=== PATIENT | female | born 1945 | race Caucasian/White ===

== ENCOUNTER 2016-08-14 20:04 | Inpatient (IN) ==
[2016-08-14] MEDS ORDERED: Ondansetron 4 MG/2 ML VIAL IVP ONE (20:59)
[2016-08-14] MEDS ORDERED: 0.9 % Sodium Chloride 500 ML IVC ONE (20:59)
[2016-08-14] MEDS ORDERED: *HR* HYDROmorphone (PF) 1 MG/ML SYRINGE IVP ONE (20:59)
--- NOTE | 2016-08-14 21:00 | Emergency Department Note ---
Disposition Clinical Impression: CRISTOBAL (acute kidney injury), Dehydration Abdominal pain Qualifiers: Abdominal location: right lower quadrant Qualified Code(s): R10.31 - Right lower quadrant pain Disposition: Admitted As Inpatient Condition: Fair Time of Disposition: 00:33 Abdominal Pain HPI - General Chief Complaint: ED Abdominal Pain Stated Complaint: right flank pain Time Seen by Provider: 08/14/16 20:15 Source: patient Mode of arrival: ambulatory Limitations: no limitations Nursing Notes Reviewed: Yes Vital Signs Reviewed: Yes - History of Present Illness HPI Narrative: 71-year-old female with right lower quadrant pain radiating to her right flank. Patient states that she was seen 3 days ago for the evaluation the same pain. They thought that maybe she passed a kidney stone. Patient has a history of cholecystectomy. States it out of 10 cramping right lower quadrant pain radiated into her right flank. Also so she has some dysuria. Reports subjective fevers and chills, patient denies any history of colonoscopy or endoscopy. Patient states she had no hematuria hematemesis or melena or shortness of breath Pt Subjective Complaint: abdominal pain Onset (ago): hour(s) Consistency: intermittent Location: RLQ Pain Severity: mild Pain Scale: 10 Quality: aching Radiation: LLQ, R flank Migration to: RLQ Improves with: nothing Worsens with: bowel movement, movement Associated symptoms: Reports: nausea. Denies: vomiting, diarrhea, constipation , dysuria, hematemesis, hematochezia, melena - Related Data Home Medications Medication Instructions Recorded Confirmed Aspirin [Lo-Dose Aspirin EC] 81 mg PO DAILY 04/12/16 06/01/16 Atorvastatin [Lipitor] 40 mg PO HS 04/12/16 06/01/16 Chlorthalidone 50 mg PO DAILY 04/12/16 06/01/16 Lisinopril [Zestril] 40 mg PO DAILY 04/12/16 06/01/16 Metformin HCl [Metformin HCl ER] 3 tab PO DAILY 04/12/16 06/01/16 Metoprolol [Lopressor] 100 mg PO BID 04/12/16 06/01/16 Potassium Chloride [K-Tab ER] 20 meq PO DAILY 04/12/16 06/01/16 Previous Rx's Medication Instructions Recorded HYDROcodone/Acet 5/325 mg [[place] 1 tab PO Q4H PRN #15 tab 08/12/16 5-325 mg] Ondansetron ODT [Zofran ODT] 4 mg SL Q6HR PRN #15 tab.rapdis 08/12/16 Sulfamethoxazole/Trimeth DS 1 each PO BID #14 tablet 08/12/16 [Bactrim DS] Allergies Allergy/AdvReac Type Severity Reaction Status Date / Time No Known Allergies Allergy Verified 08/14/16 20:17 All systems ED: reviewed and negative except as stated. Constitutional: Denies: fever, chills Cardiovascular: Denies: chest pain, palpitations Respiratory: Denies: cough, dyspnea Gastrointestinal: Reports: abdominal pain, nausea. Denies: vomiting, diarrhea Genitourinary: Denies: urgency, dysuria Musculoskeletal: Denies: back pain, neck pain Integumentary: Denies: rash, abrasion Abdominal Pain PMH - Past Medical History Medical history: Reports: cancer, diabetes, hypertension Female Surgical History: Reports: cholecystectomy, coronary bypass (CABG) Psychiatric history: Reports: no psych history - Social History Smoking status: Never smoker Alcohol use: Reports: none Drug use: Reports: none Physical Exam Constitutional: elderly female appears moderately uncomfortable, vital signs within normal limits HEENT: NCAT, sclera anicteric, PERRLA bilaterally, average dentition, mucous membranes dry Neck: normal inspection, neck is supple, trachea midline Resp: normal chest inspection, CTA bilaterally, no resp distress CV: RRR, no m/g/r GI: Right lower quadrant tenderness to palpation, tenderness with rebound moderate, no guarding or rigidity, positive right CVA tenderness Back: normal inspection, no tenderness to palpation Skin: poor turgor - General General appearance: alert, in no apparent distress Course Course Narrative: 71-year-old female recently CT scan was negative, for abdominal pathology however she continues to have right lower quadrant pain - Reevaluation(s) Reevaluation #1: Admitted to [facility] still with concerning RLQ pain and no evidence of surgical pathology, admitted for pain and further workup given bouncebacks and age and comorbids may need gi eval. Time: 00:45 Vital Signs Temperature 98.2 F 08/14/16 20:15 Pulse Rate 67 08/14/16 20:15 Respiratory Rate 14 08/14/16 20:15 Blood Pressure 180/82 08/14/16 20:15 O2 Sat by Pulse Oximetry 96 08/14/16 20:15 Temperature 98.2 F 08/14/16 20:15 Pulse Rate 67 08/14/16 20:15 Respiratory Rate 14 08/14/16 20:15 Blood Pressure 180/82 08/14/16 20:15 O2 Sat by Pulse Oximetry 96 08/14/16 20:15 Oxygen Delivery Oxygen Delivery Room Air Abdominal Pain - MDM Narrative Medical decision making narrative: 71-year-old female admitted for nonspecific abdominal pain, elevated bilirubin, dehydration and acute kidney injury in stable condition at time of ED disposition - Differential Diagnosis Differential Diagnosis: Likely: abdominal pain non-specific, abdominal pain mimics ectopic , acute appendicitis, diverticulitis, endometriosis, gastroenteritis, ischemic bowel - Medical Records Medical records reviewed: Yes I reviewed the patient's medical records. - Lab Data Lab results reviewed: Yes I reviewed the patient's lab results. Result diagrams: 08/14/16 21:59 08/14/16 21:59 Lab Results 08/14/16 08/14/16 08/14/16 Range/Units 21:59 21:59 21:59 WBC 9.3 (4.3-11.1) K/mcL RBC 4.18 (3.82-4.97) M/mcL Hgb 12.5 (11.5-15.4) g/dL Hct 37.0 (35.3-44.9) % MCV 88.5 (83.0-100.0) fL MCH 29.9 (28.0-33.3) pg MCHC 33.8 (31.6-35.5) g/dL RDW 12.4 (11.5-14.5) % Plt Count 241 (140-400) K/mcL MPV 9.8 (9.4-12.4) fL Immature Gran % 0.4 (0-4) % Seg Neutrophils % 76.5 % Lymphocytes % 9.3 % Monocytes % 10.8 % Eosinophils % 2.8 % Basophils % 0.2 % Neutrophils # 7.1 (1.6-8.9) K/mcL Lymphocytes # 0.9 (0.6-4.6) K/mcL Monocytes # 1.0 (0.0-1.3) K/mcL Eosinophils # 0.3 (0.0-0.6) K/mcL Basophils # 0.0 (0.0-0.2) K/mcL Sodium 139 (136-145) mEq/L Potassium 4.0 (3.5-4.5) mEq/L Chloride 104 (98-109) mEq/L Carbon Dioxide 23 (19-29) mEq/L BUN 21 H (7-20) mg/dL Creatinine 1.48 H D (0.57-1.11) mg/dL Est GFR ( Amer) 42 L (> 60) Est GFR (Non-Af Amer) 35 L (> 60) BUN/Creatinine Ratio 14 (6-26) Glucose 146 H (70-99) mg/dL Calculated Osmolality 294 (280-300) Calcium 9.3 (8.6-10.8) mg/dL Total Bilirubin 2.1 H (0.2-1.2) mg/dL Direct Bilirubin 0.7 H (0.0-0.5) mg/dL Indirect Bilirubin 1.4 H (0.0-1.2) mg/dL AST 25 (5-34) Units/L ALT 30 (0-55) Units/L Alkaline Phosphatase 79 (38-126) Units/L Troponin I 0.01 (0-0.03) ng/mL Serum Total Protein 7.2 (6.0-8.3) g/dL Albumin 3.8 (3.5-5.0) g/dL Globulin 3.4 (2.4-3.5) g/dL Albumin/Globulin Ratio 1.1 (1.1-2.2) Lipase 17 (8-78) Units/L Urine Color (Yellow) Urine Clarity (Clear) Urine pH (5.0-8.0) pH Units Ur Specific [place] (1.010-1.025) Urine Protein (Neg-Trace) mg/dL Urine Glucose (UA) (Normal) mg/dL Urine Ketones (Negative) mg/dL Urine Blood (Negative) Urine Nitrite (Negative) Urine Bilirubin (Negative) Urine Urobilinogen (Normal) mg/dL Ur Leukocyte Esterase (Negative) Urine Microscopic WBC (0-3) per hpf Ur Squamous Epith Cells (None-Few) per lpf Urine Bacteria (None-Few) per hpf 08/14/16 Range/Units 23:50 WBC (4.3-11.1) K/mcL RBC (3.82-4.97) M/mcL Hgb (11.5-15.4) g/dL Hct (35.3-44.9) % MCV (83.0-100.0) fL MCH (28.0-33.3) pg MCHC (31.6-35.5) g/dL RDW (11.5-14.5) % Plt Count (140-400) K/mcL MPV (9.4-12.4) fL Immature Gran % (0-4) % Seg Neutrophils % % Lymphocytes % % Monocytes % % Eosinophils % % Basophils % % Neutrophils # (1.6-8.9) K/mcL Lymphocytes # (0.6-4.6) K/mcL Monocytes # (0.0-1.3) K/mcL Eosinophils # (0.0-0.6) K/mcL Basophils # (0.0-0.2) K/mcL Sodium (136-145) mEq/L Potassium (3.5-4.5) mEq/L Chloride (98-109) mEq/L Carbon Dioxide (19-29) mEq/L BUN (7-20) mg/dL Creatinine (0.57-1.11) mg/dL Est GFR ( Amer) (> 60) Est GFR (Non-Af Amer) (> 60) BUN/Creatinine Ratio (6-26) Glucose (70-99) mg/dL Calculated Osmolality (280-300) Calcium (8.6-10.8) mg/dL Total Bilirubin (0.2-1.2) mg/dL Direct Bilirubin (0.0-0.5) mg/dL Indirect Bilirubin (0.0-1.2) mg/dL AST (5-34) Units/L ALT (0-55) Units/L Alkaline Phosphatase (38-126) Units/L Troponin I (0-0.03) ng/mL Serum Total Protein (6.0-8.3) g/dL Albumin (3.5-5.0) g/dL Globulin (2.4-3.5) g/dL Albumin/Globulin Ratio (1.1-2.2) Lipase (8-78) Units/L Urine Color Yellow (Yellow) Urine Clarity Clear (Clear) Urine pH 6.0 (5.0-8.0) pH Units Ur Specific [place] 1.015 (1.010-1.025) Urine Protein Negative (Neg-Trace) mg/dL Urine Glucose (UA) Normal (Normal) mg/dL Urine Ketones Negative (Negative) mg/dL Urine Blood Negative (Negative) Urine Nitrite Negative (Negative) Urine Bilirubin Negative (Negative) Urine Urobilinogen 2.0 H (Normal) mg/dL Ur Leukocyte Esterase Trace H (Negative) Urine Microscopic WBC 0-3 (0-3) per hpf Ur Squamous Epith Cells Few (None-Few) per lpf Urine Bacteria Moderate H (None-Few) per hpf - Radiology Data Radiology results reviewed: Yes I reviewed the patient's radiology results. - EKG Data EKG attestation: Yes I reviewed and interpreted this EKG. EKG shows normal: sinus rhythm Rate: normal Rhythm: NSR (63bpm, 203 AK QRS 98 QTc 432) [place]/QRS: normal Interpretation: unchanged when compared to prior tracing (date) - Core Measures AMI Core Measures Followed: No
--- NOTE | 2016-08-14 21:13 | Emergency Department Note ---
START Narrative - START START: I examined this patient and my medical decision-making was reviewed with the HOTEL ROOM ATTENDANT/PA/Advanced Practice Nurse/Resident Physician. I agree with the documented findings, disposition and treatment plan as described except to the extent set forth below. ED attending note: Patient seen with emergency medicine resident Dr. Storm. Please see a copy of his note for details of the H&P, evaluation, management and disposition of this patient. We independently had [id number] contact with the patient Briefly: 71-year-old female evaluated within the past week at this ER for right flank pain had a negative CT scan patient has increasing pain on the right lower quadrant she is tender with guarding but no rebound. Symmetrical heaving she is vomiting. Patient getting labs IV fluids anti-emetics analgesics and IV contrast CT. Disposition pending.
[2016-08-14 22:09] LABS: Basophils % 0.2 %; Eosinophils # 0.3 K/mcL (0.0-0.6); Eosinophils % 2.8 %; Hemoglobin 12.5 g/dL (11.5-15.4); Immature Granulocytes % 0.4 % (0-4); Lymphocytes # 0.9 K/mcL (0.6-4.6); Lymphocytes % 9.3 %; Mean Corpuscular HGB Conc 33.8 g/dL (31.6-35.5); Mean Corpuscular Hemoglobin 29.9 pg (28.0-33.3); Mean Corpuscular Volume 88.5 fL (83.0-100.0); Mean Platelet Volume 9.8 fL (9.4-12.4); Monocytes % 10.8 %; Neutrophils # 7.1 K/mcL (1.6-8.9); Platelet Count 241 K/mcL (140-400); Red Blood Count 4.18 M/mcL (3.82-4.97); Red Cell Distribution Width 12.4 % (11.5-14.5); Segmented Neutrophils % 76.5 %
[2016-08-14 22:21] LABS: Albumin 3.8 g/dL (3.5-5.0); Albumin/Globulin Ratio 1.1 (1.1-2.2); Bilirubin,Direct 0.7 mg/dL (0.0-0.5); Bilirubin,Indirect 1.4 mg/dL (0.0-1.2); Bilirubin,Total 2.1 mg/dL (0.2-1.2); Calcium 9.3 mg/dL (8.6-10.8); Globulin 3.4 g/dL (2.4-3.5); Total Protein 7.2 g/dL (6.0-8.3)
[2016-08-14 23:58] LABS: Bilirubin,Urine Negative (Negative); Blood,Urine Negative (Negative); Clarity,Urine Clear (Clear); Color,Urine Yellow (Yellow); Glucose,Urine (UA) Normal (Normal); Ketones,Urine Negative (Negative); Leukocyte Esterase,Urine Trace (Negative); Nitrite,Urine Negative (Negative); Protein,Urine Negative (Neg-Trace); Specific Gravity,Urine 1.015 (1.010-1.025)
[2016-08-15 00:08] LABS: Bacteria,Urine Moderate per hpf (None-Few); Squamous Epithelial Cell,Urine Few per lpf (None-Few); WBC,Urine 0-3 per hpf (0-3)
--- NOTE | 2016-08-15 01:10 | Internal Med History&Physical ---
<Josiah Montes - Last Filed: 08/15/16 02:36> Date of Encounter: 08/15/16 Time of Encounter: 00:45 Assessment and Plan (1) UTI (urinary tract infection) Current visit: No Status: Acute Patient presents with nausea, vomiting, and abdominal pain. UA was suggestive of UTI, without blood or casts. Patient does not have tachycardia, tachypnea, is afebrile, and has no leukocytosis. There is no clear reason at the moment why she is having such severe abdominal pain. Will start patient on ceftriaxone Obtain urine culture and sensitivities to further direct antibiotic treatment Qualifiers: Urinary tract infection type: site unspecified Hematuria presence: without hematuria Qualified Code(s): N39.0 - Urinary tract infection, site not specified (2) Abdominal pain Current visit: Yes Status: Acute Patient complains of RLQ abdominal pain at presentation. CT of her abdomen was negative for acute processes. No renal or uretral stones were visualized, there were no secondary signs of appendicitis, she had prior cholecystectomy, and there were no signs of obstructive uropathy. There was no rash identified on physical exam, patient abdomen was soft without signs of guarding or rebound. UA was suggestive of UTI though. Pain control with Tylenol, [place], and Dilaudid prn for patient discomfort Qualifiers: Abdominal location: right lower quadrant Qualified Code(s): R10.31 - Right lower quadrant pain (3) CRISTOBAL (acute kidney injury) Current visit: Yes Status: Acute Her CRISTOBAL is likely multi-factorial coming from decreased PO intake and dehydration as well as using several potentially nephrotoxic agents: lisinpeil, metformin, chlorthalidone, and Bactrim. Will hold all potentially nephrotoxic agents Patient received 1000 ml bolus in the ER, and has been continued on 125 ml/hr normal saline Will recheck renal function in the morning (4) Hypertension Current visit: Yes Status: Acute Patient has been showing hypertension since admission. She takes several medications at home to help her control her hypertension. Will hold her home lisinopril due to concerns of CRISTOBAL currently Continue home metoprolol Qualifiers: Hypertension type: essential hypertension Qualified Code(s): I10 - Essential (primary) hypertension (5) Elevated bilirubin Current visit: Yes Status: Acute Patient has elevated Total bilirubin to 2.1 with an even elevation seen in both Direct and Indirect bilirubin. This is unchanged from her previous labwork several days ago, but improved from labwork seen from 2014. She has no reports of jaundice or icterus. Alk Phos was normal. Will recheck hepatic panel in the morning (6) DVT prophylaxis Current visit: Yes Status: Acute Patient started on 5000 u heparin SQ Encourage ambulation Internal Medicine - H&P: HPI Chief complaint: Abdominal Pain, Nausea, and vomiting Admitted From: Home Plans for Post Hospital Care: Home History of present illness: Ms. Sanders is a 71 year old female with prior medical history signifcant for non -insulin dependent diabetes mellitus, hypertension, and Hodgkin;s Lymphoma (for which she finished treatment in 04/2016. who presents to [facility] with continued abdominal pain in the RLQ of her abdomen. She came to the ER on 08/12/16 with similar complaints, underwent a CT of her abdomen (no acute findings in the abdomen), and was diagnosed with a UTI and sent home with pain medication and Bactrim. She returned to the ER last night after having continuation and worsening of the abdominal pain that she had on 08/12. She reports that the pain in her abdomen never improved and at times had worsened despite the antibiotics. She describes the pain as sharp, 10/10 in severity, non-radiating, with pain medication making better. She states that she has been having nausea and vomiting without hematemesis or coffee-ground emesis. She also reports having some anorexia in the past day because of the pain she has been having. She denies having had a fever/chills, chest pain, shortness of breath, dysuria, polyuria, hematuria, urinary incontinence, weakness, fatigue, diarrhea, or constipation. Past Med Surg Social Fam HX - Past Medical History Medical history: cancer, diabetes, hypertension Psychiatric history: no psych history - Social History Smoking Status: Never smoker Smokeless Tobacco Status: No Alcohol use: none Drug use: none - Family History Mother Hx Family Cardiac Disorders: Yes Hx Family Endocrine Disorder: Yes Father Hx Family Cardiac Disorders: Yes Internal Medicine - H&P: Meds Aspirin [Lo-Dose Aspirin EC] 81 mg PO DAILY 04/12/16 [History] Atorvastatin [Lipitor] 40 mg PO HS 04/12/16 [History] Chlorthalidone 50 mg PO DAILY 04/12/16 [History] Lisinopril [Zestril] 40 mg PO DAILY 04/12/16 [History] Metformin HCl [Metformin HCl ER] 3 tab PO DAILY 04/12/16 [History] Metoprolol [Lopressor] 100 mg PO BID 04/12/16 [History] Potassium Chloride [K-Tab ER] 20 meq PO DAILY 04/12/16 [History] Sulfamethoxazole/Trimeth DS [Bactrim DS] 1 each PO BID #14 tablet 08/12/16 [Rx] Allergies No Known Allergies Allergy (Verified 08/14/16 20:17) - Constitutional Constitutional: anorexia, no chills, no fatigue, no fever(s), no night sweats, no weakness, no weight loss - Cardiovascular Cardiovascular ROS IM: no chest pain, no diaphoresis, no dyspnea, no lightheadedness, no palpitations, no syncope - Respiratory Respiratory: no cough, no dyspnea, no wheezing, no excessive phlegm production - Gastrointestinal Gastrointestinal: abdominal pain, nausea, vomiting, no coffee ground emesis, no constipation, no diarrhea, no hematemesis, no hematochezia, no melena - Genitourinary Genitourinary: as per HPI, no difficulty urinating, no dysuria, no flank pain, no hematuria, no nocturia, no urinary incontinence - Musculoskeletal Musculoskeletal ROS IM: no numbness, no tingling - Integumentary Integumentary IM: no rash, no unusual bruising - Neurological Neurological ROS: no confusion, no convulsions, no focal weakness, no numbness, no tingling, no tremor(s) - Hematologic/Lymphatic Hematologic/Lymphatic: no easy bruising - Constitutional Vitals: Temp Pulse Resp BP Pulse Ox 98.2 F 67 16 154/50 96 08/14/16 20:15 08/14/16 20:15 08/15/16 00:38 08/15/16 00:38 08/14/16 20:15 General appearance: Present: cooperative, A&O X 3, pleasant, no acute distress, obese, answers questions appropriately - Head Head exam: Present: atraumatic, normocephalic - Eye Eye exam: Present: PERRL, conjuntiva pink, sclera anicteric Pupils: Present: PERRL - Neck Neck exam general surgery: Present: supple, trachea midline - Respiratory Respiratory exam: Present: CTAB. Absent: accessory muscle use, rales, respiratory distress, rhonchi, wheezes - Cardiovascular Cardiovascular exam: Present: RRR, +S1, +S2. Absent: diastolic murmur, gallop, rubs, systolic murmur - GI/Abdominal GI/Abdominal exam: Present: normal bowel sounds, soft, tenderness (in RLQ), no peritoneal signs. Absent: distended, guarding, rebound, rigid - Extremities Exam Extremities exam: Present: warm, radial pulses palpable and symetrical. Absent : calf tenderness, cyanotic, pedal edema - Neurological Exam Neurological exam: Present: alert, oriented X3, no focal deficits. Absent: facial droop, speech deficit - Skin Skin exam: Present: dry, intact. Absent: rash Internal Med - H&P Results - Labs CBC & Chem 7: 08/14/16 21:59 08/14/16 21:59 - Impressions Impressions Abdomen/Pelvis CT 08/14/16 20:59 IMPRESSION: No acute findings within the abdomen or pelvis. No evidence of obstructive uropathy. No secondary signs of appendicitis. D/ / 08/14/2016 23:07:20 Librado Rico MD / michele Interpreting Provider: Librado Rico MD <Dennis Browning - Last Filed: 08/15/16 03:48> Internal Medicine - H&P: HPI History of present illness: Ms. Sanders is a 71 year old female All Systems PM: A 10-system review of systems was performed and is negative for pertinent findings except as documented above in the HPI. - Constitutional Vitals: Temp Pulse Resp BP Pulse Ox 98.1 F 72 16 184/78 93 L 08/15/16 01:20 08/15/16 01:20 08/15/16 01:20 08/15/16 01:20 08/15/16 01:20 Internal Med - H&P Results - Labs CBC & Chem 7: 08/14/16 21:59 08/14/16 21:59 - Attending Attestation I examined this patient and my medical decision-making was reviewed with the STEWARDING SUPERVISOR/PA/Advanced Practice Nurse/Resident Physician. I agree with the documented findings, disposition and treatment plan as described except to the extent set forth below. Agree with Dr. Montes. Continue with pain control meds. Rocephin via IV.
[2016-08-15] MEDS ORDERED: Dextrose Gel 15 GM PO PRN ×2 (01:24)
[2016-08-15] MEDS ORDERED: *HR* HYDROmorphone (PF) 1 MG/ML SYRINGE IVP PRN (01:24)
[2016-08-15] MEDS ORDERED: Ondansetron 4 MG/2 ML VIAL IVP PRN (01:24)
[2016-08-15] MEDS ORDERED: Acetaminophen 325 MG TABLET PO PRN (01:24)
[2016-08-15] MEDS ORDERED: *HR* Dextrose 50 % in Water (Syg) 50 ML SYRINGE IVP PRN (01:24)
[2016-08-15] MEDS ORDERED: Naloxone 0.4 MG/ML INJ IVP PRN (01:24)
[2016-08-15] MEDS ORDERED: D5% in Water 1,000 ML IVC PRN (01:24)
[2016-08-15] MEDS ORDERED: Sennosides/Docusate Sodium TABLET PO PRN (01:29)
[2016-08-15] MEDS ORDERED: Metoprolol 100 MG TABLET PO ONE (02:12)
[2016-08-15] MEDS: 0.9 % Sodium Chloride 1,000 ML IVC SCH ×4 (02:20→23:21)
[2016-08-15 03:48] LABS: Basophils % 0.3 %; Eosinophils # 0.3 K/mcL (0.0-0.6); Eosinophils % 2.9 %; Hematocrit 38.5 % (35.3-44.9); Hemoglobin 12.8 g/dL (11.5-15.4); Immature Granulocytes % 0.5 % (0-4); Lymphocytes # 1.5 K/mcL (0.6-4.6); Lymphocytes % 13.3 %; Mean Corpuscular HGB Conc 33.2 g/dL (31.6-35.5); Mean Corpuscular Volume 90.4 fL (83.0-100.0); Mean Platelet Volume 10.3 fL (9.4-12.4); Monocytes # 1.4 K/mcL (0.0-1.3); Neutrophils # 8.2 K/mcL (1.6-8.9); Platelet Count 285 K/mcL (140-400); Red Blood Count 4.26 M/mcL (3.82-4.97); Red Cell Distribution Width 12.6 % (11.5-14.5)
[2016-08-15 03:59] LABS: Albumin/Globulin Ratio 1.1 (1.1-2.2); Bilirubin,Direct 0.8 mg/dL (0.0-0.5); Bilirubin,Indirect 1.4 mg/dL (0.0-1.2); Bilirubin,Total 2.2 mg/dL (0.2-1.2); Calcium 9.3 mg/dL (8.6-10.8); Globulin 3.5 g/dL (2.4-3.5); Potassium 3.8 mEq/L (3.5-4.5); Total Protein 7.5 g/dL (6.0-8.3)
[2016-08-15] MEDS: Metoprolol 100 MG TABLET PO SCH ×3 (04:27→20:38)
[2016-08-15] MEDS: *HR* HYDROcodone/Acet 5/325 mg TABLET PO PRN ×3 (04:28→20:38)
[2016-08-15] MEDS: Pantoprazole 40 MG VIAL IVP SCH (05:34)
[2016-08-15] MEDS: *HR* Heparin 5,000 UNIT/ML VIAL SQ SCH ×3 (05:37→21:28)
--- NOTE | 2016-08-15 07:07 | Electrocardiograph Report ---
[address] [place], [place] [address] Test Date: 2016-08-14 Pat Name: Radha Sanders Department: 104 Room: 3B11 Gender: F Electronics Engineer: LAUREN : 1945 Requested By: Javier Storm Order Number: [id number] Reading MD: David Frederick MD Measurements Intervals [place] Rate: 63 P: 79 SC: 203 QRS: 23 QRSD: 98 T: 5 QT: 425 QTc: 432 Interpretive Statements SINUS RHYTHM Electronically Signed On 08-15-2016 7:05:29 EDT by David Frederick MD
[2016-08-15] MEDS: Aspirin Enteric Coated 81 MG Tablet PO SCH (07:28)
[2016-08-15] MEDS: Insulin LISPRO 300 UNITS/3 ML VIAL SQ SCH ×3 (07:29→16:23)
--- NOTE | 2016-08-15 11:54 | Event Note ---
Date of Encounter: 08/15/16 Time of Encounter: 11:52 patient with history ofvv obesity, diabetes, htn , hodkins lymphoma presents with abd pain work up all negative at presents mildly elevated bilurubin has renal failureb which appears acute receiving iv hydration will recheck in am
[2016-08-15] MEDS ORDERED: Insulin LISPRO 300 UNITS/3 ML VIAL SQ SCH (21:00)
[2016-08-16 04:51] LABS: Hematocrit 32.3 % (35.3-44.9); Mean Corpuscular HGB Conc 33.4 g/dL (31.6-35.5); Mean Corpuscular Hemoglobin 30.3 pg (28.0-33.3); Mean Corpuscular Volume 90.7 fL (83.0-100.0); Mean Platelet Volume 10.7 fL (9.4-12.4); Platelet Count 204 K/mcL (140-400); Red Blood Count 3.56 M/mcL (3.82-4.97); Red Cell Distribution Width 12.9 % (11.5-14.5)
[2016-08-16 04:54] LABS: Hemoglobin 10.8 g/dL (11.5-15.4)
[2016-08-16 05:15] LABS: Calcium 8.4 mg/dL (8.6-10.8); Potassium 3.7 mEq/L (3.5-4.5)
[2016-08-16 05:24] LABS: Albumin 3.4 g/dL (3.5-5.0); Albumin/Globulin Ratio 1.2 (1.1-2.2); Bilirubin,Total 1.7 mg/dL (0.2-1.2); Calcium 8.6 mg/dL (8.6-10.8); Globulin 2.9 g/dL (2.4-3.5); Magnesium 1.4 mg/dL (1.6-2.6); Potassium 3.7 mEq/L (3.5-4.5); Total Protein 6.3 g/dL (6.0-8.3)
[2016-08-16] MEDS: Pantoprazole 40 MG VIAL IVP SCH (06:22)
[2016-08-16] MEDS: *HR* Heparin 5,000 UNIT/ML VIAL SQ SCH (06:22)
[2016-08-16] MEDS: Insulin LISPRO 300 UNITS/3 ML VIAL SQ SCH ×2 (07:18→11:19)
[2016-08-16] MEDS: Metoprolol 100 MG TABLET PO SCH (07:21)
[2016-08-16] MEDS: *HR* HYDROcodone/Acet 5/325 mg TABLET PO PRN (07:21)
[2016-08-16] MEDS: Aspirin Enteric Coated 81 MG Tablet PO SCH (07:21)
[2016-08-16] MEDS: 0.9 % Sodium Chloride 1,000 ML IVC SCH (07:22)
[2016-08-16 10:58] VITALS: BP 158/71
--- NOTE | 2016-08-16 14:21 | Discharge Summary ---
Date of Encounter: 08/16/16 Time of Encounter: 14:19 - Discharge Diagnosis (1) Flank pain Priority: Primary Status: Acute Comments: unknown etiology, consider possible nephrolithiasis that passed through (2) UTI (urinary tract infection) Priority: Primary Status: Acute Comments: complaining of dysuria, order another U/A with culture may discharge on cipro if symptoms persist, will call the patient if the culture if positive Qualifiers: Urinary tract infection type: site unspecified Hematuria presence: without hematuria Qualified Code(s): N39.0 - Urinary tract infection, site not specified (3) CRISTOBAL (acute kidney injury) Priority: Primary Status: Acute Comments: resolved, likely secondary to dehydration and Bactrim (4) Dehydration Priority: Secondary Status: Acute (5) Abdominal pain Priority: Secondary Status: Acute Qualifiers: Abdominal location: right lower quadrant Qualified Code(s): R10.31 - Right lower quadrant pain (6) Elevated bilirubin Priority: Secondary Status: Acute - Discharge Medications Prescriptions: HYDROcodone/Acet 5/325 mg [[place] 5-325 mg] 1 tab PO Q4HR PRN #20 tablet PRN Reason: Moderate Pain (4-6) Ciprofloxacin [Cipro] 500 mg PO BID #10 tablet Home Medications: Aspirin [Lo-Dose Aspirin EC] 81 mg PO DAILY 04/12/16 [History] Atorvastatin [Lipitor] 40 mg PO HS 04/12/16 [History] Chlorthalidone 50 mg PO DAILY 04/12/16 [History] Lisinopril [Zestril] 40 mg PO DAILY 04/12/16 [History] Metoprolol [Lopressor] 100 mg PO BID 04/12/16 [History] Potassium Chloride [K-Tab ER] 20 meq PO DAILY 04/12/16 [History] Ciprofloxacin [Cipro] 500 mg PO BID #10 tablet 08/16/16 [Rx] HYDROcodone/Acet 5/325 mg [[place] 5-325 mg] 1 tab PO Q4HR PRN #20 tablet [Rx] Allergies/Adverse Reactions: Allergies No Known Allergies Allergy (Verified 08/14/16 20:17) Date of admission: 08/15/16 10:53 Primary care physician: Petr Lilly MD - Patient Status Disposition: Home, Self-Care Condition: Fair Overall status at discharge: patient is back to baseline - Discharge Instructions Follow Up With: Petr Lilly MD [Primary Care Provider] - 08/26/16 9:15 am Additional Instructions: Follow-up with primary care physician within the next 7 days. Hold metformin until senior primary care physician. Can continue with 5 more days of ciprofloxacin. - Diet and Activity Activity: increase activity as tolerated Diet: diabetic diet Hospital course: Ms. Sanders is a 71 year old female with prior medical history signifcant for cholecystectomy, non-insulin dependent diabetes mellitus, hypertension, and Hodgkin;s Lymphoma (for which she finished treatment in 04/2016. who presented to [facility] with continued abdominal pain in the RLQ of her abdomen. She came to the ER on 08/12/16 with similar complaints, underwent a CT of her abdomen (no acute findings in the abdomen), and was diagnosed with a UTI and sent home with pain medication and Bactrim. She returned to the ER after having continuation and worsening of the abdominal pain that she had on 08/12. She reported that the pain in her abdomen never improved and at times had worsened despite the antibiotics. She described the pain as sharp, 10/10 in severity, non-radiating, with pain medication making better. She stated that she was having nausea and vomiting without hematemesis or coffee-ground emesis. Creatinine was 1.48 and has decreased down to 1.15. Her baseline with IV fluids. She is not dehydrated at this point. Cultures have been negative, the patient was treated with ceftriaxone, the CT scan of the abdomen did not show any abnormalities. Total bilirubin was 2.2 decreased to 1.7 with a direct bilirubin of 0.8 AST is 19 and ALT is 25 which are normal values. The patient's pain has resolved and she is stable to be discharged home although she does complain of some mild dysuria for which we will order another culture and send the patient on ciprofloxacin. - Time Spent with Patient Total time spent providing and/or coordinating discharge services: Greater than 30 minutes (40 min) - Constitutional Vitals: Temp Pulse Resp BP Pulse Ox 98.5 F 63 17 158/71 96 08/16/16 10:56 08/16/16 10:56 08/16/16 10:56 08/16/16 10:56 08/16/16 10:56 General appearance: Present: cooperative, A&O X 3, pleasant, no acute distress, obese, answers questions appropriately - Head Head exam: Present: atraumatic, normocephalic - Eye Eye exam: Present: PERRL, conjuntiva pink, sclera anicteric Pupils: Present: PERRL - Neck Neck exam general surgery: Present: supple, trachea midline. Absent: lymphadenopathy - Respiratory Respiratory exam: Present: CTAB. Absent: accessory muscle use, rales, rhonchi, wheezes - Cardiovascular Cardiovascular exam: Present: RRR, +S1, +S2. Absent: diastolic murmur, gallop, rubs, systolic murmur - GI/Abdominal GI/Abdominal exam: Present: normal bowel sounds, soft, no peritoneal signs. Absent: distended, tenderness - Extremities Exam Extremities exam: Present: warm, radial pulses palpable and symetrical. Absent : calf tenderness, cyanotic, pedal edema - Neurological Exam Neurological exam: Present: CN II-XII intact, oriented X3, no focal deficits. Absent: pronater drift, facial droop, speech deficit - Skin Skin exam: Present: dry, intact
[2016-08-16 16:10] LABS: Bilirubin,Urine Negative (Negative); Blood,Urine Negative (Negative); Clarity,Urine Clear (Clear); Color,Urine Yellow (Yellow); Glucose,Urine (UA) Normal (Normal); Ketones,Urine Negative (Negative); Leukocyte Esterase,Urine Negative (Negative); Nitrite,Urine Negative (Negative); Protein,Urine Negative (Neg-Trace); Specific Gravity,Urine 1.009 (1.010-1.025); Urobilinogen,Urine Normal (Normal)
== END 2016-08-16 15:59 | disposition home or self-care (01) | DRG 690 ==
LOC: 3BNU 20:04 → EMEROO 20:04 → 3BNU 08-15 01:16 → SUATTDRO 08-15 10:53
PROVIDERS: ADMIT Internal Medicine; ATTEND Internal Medicine